=== PATIENT | female | born 1960 | race Caucasian/White ===

== ENCOUNTER → 2018-02-28 | Outpatient (CLI) | payer BC ==
--- NOTE | 2018-02-28 09:16 | MM ---
Reason for exam: clinical finding. Last mammogram was performed 2 years and 1 month ago. History: Patient is postmenopausal. 3 excisional biopsies of the left breast. Benign excisional biopsy of the right breast. Took hormonal contraceptives for 1 year. Indicated problem(s): lump or thickening in the left breast. Physical Findings: Nurse Summary: 1.5cm nodule in the left breast at 4 o'clock (nurse mj). MG 3D Diag Mammo W/Cad YURY Bilateral CC and MLO view(s) were taken. LM view(s) were taken of the right breast. Prior study comparison: January 29, 2016, bilateral MG diagnostic mammo w CAD [facility]. January 24, 2015, bilateral MG diagnostic mammo w CAD Y[facility]. The breast tissue is heterogeneously dense. This may lower the sensitivity of mammography. Benign appearing bilateral calcifications. No suspicious abnormality. Left upper outer quadrant posterior depth cysts decreaed in size from priors. These results were verbally communicated with the patient and result sheet given to the patient on 02/28/18. ASSESSMENT: Benign, BI-RAD 2 RECOMMENDATION: Routine screening mammogram of both breasts in 1 year.
--- NOTE | 2018-02-28 09:18 | USB ---
Reason for exam: additional evaluation requested from prior study. History: Patient is postmenopausal. 3 excisional biopsies of the left breast. Benign excisional biopsy of the right breast. Took hormonal contraceptives for 1 year. US Breast BILAT Technologist: Yana Wiggins, RT (R)(M) Right complete breast ultrasound includes all four quadrants, the retroareolar region and axilla. Finding demonstrates a 5mm oval, cystic lesion at 9 o'clock, a 6mm oval, cystic lesion at 9 o'clock and a 5mm cystic cluster at 11 o'clock. Left complete breast ultrasound includes all four quadrants, the retroareolar region and axilla. Finding demonstrates a 16 x 15 x 12mm oval, cystic lesion at 3 o'clock BB. All cystic and benign. These results were verbally communicated with the patient and result sheet given to the patient on 02/28/18. ASSESSMENT: Benign, BI-RAD 2 RECOMMENDATION: Routine screening mammogram of both breasts in 1 year.
== END | disposition home or self-care (01) ==
LOC: RADMAMWWP 07:46
PROVIDERS: ATTEND Obstetrics & Gynecology
DX: N60.09 Solitary cyst of unspecified breast (principal)
CPT/HCPCS: 77062; 77066

== ENCOUNTER → 2019-04-13 | Outpatient (CLI) | payer BC ==
--- NOTE | 2019-04-16 10:23 | MM ---
Reason for exam: screening (asymptomatic). Last mammogram was performed 1 year and 1 month ago. History: Patient is postmenopausal. 3 excisional biopsies of the left breast. Benign excisional biopsy of the right breast. Took hormonal contraceptives for 1 year. Physical Findings: A clinical breast exam by your physician is recommended on an annual basis and results should be correlated with mammographic findings. MG Screening Mammo w CAD Bilateral CC and MLO view(s) were taken. Prior study comparison: February 28, 2018, bilateral MG 3d diag mammo w/cad Y[facility]Y. January 29, 2016, bilateral MG diagnostic mammo w CAD YURY. The breast tissue is heterogeneously dense. This may lower the sensitivity of mammography. Finding: There are typically benign round, diffuse/scattered calcifications in the right breast. There is a chronic nodularity in the left axilla. There is no discrete abnormality. ASSESSMENT: Benign, BI-RAD 2 RECOMMENDATION: Routine screening mammogram of both breasts in 1 year.
== END | disposition home or self-care (01) ==
LOC: RADMAMWWP 16:53
PROVIDERS: ATTEND Obstetrics & Gynecology
DX: Z12.31 Encounter for screening mammogram for malignant neoplasm of breast (principal)
CPT/HCPCS: 77067

== ENCOUNTER → 2021-02-18 | Outpatient (CLI) | payer BC ==
--- NOTE | 2021-02-25 09:57 | MM ---
Reason for exam: screening (asymptomatic). Last mammogram was performed 1 year and 10 months ago. History: Patient is postmenopausal. 3 excisional biopsies of the left breast. Benign excisional biopsy of the right breast. Took hormonal contraceptives for 1 year. Physical Findings: A clinical breast exam by your physician is recommended on an annual basis and results should be correlated with mammographic findings. MG Screening Mammo w CAD Bilateral CC and MLO view(s) were taken. Prior study comparison: April 13, 2019, bilateral MG screening mammo w CAD. February 28, 2018, bilateral MG 3d diag mammo w/cad YURY. Finding #1: There is a stable typically benign high density, circumscribed, partially obscured round mass in the upper outer quadrant, middle position of the left breast. Finding #2: There are typically benign round, diffuse/scattered calcifications in the right breast. No significant changes in finding since April 13, 2019 and February 28, 2018. ASSESSMENT: Benign, BI-RAD 2 RECOMMENDATION: Routine screening mammogram of both breasts in 1 year.
== END | disposition home or self-care (01) ==
LOC: RADMAMWWP 16:17
PROVIDERS: ATTEND Obstetrics & Gynecology
DX: Z12.31 Encounter for screening mammogram for malignant neoplasm of breast (principal); Z78.0 Asymptomatic menopausal state
CPT/HCPCS: 77067

== ENCOUNTER → 2022-04-13 | Outpatient (CLI) | payer BC ==
--- NOTE | 2022-04-14 07:22 | MM ---
Reason for Exam: Screening (asymptomatic). Last mammogram was performed 1 year(s) and 2 month(s) ago. Patient History: Menarche at age 18. First Full-Term at age 26. Postmenopausal. Patient used Hormonal Contraceptives for 1 year. Benign Excisional Biopsy on the right side. Excisional Biopsy on the Left side. Excisional Biopsy on the Left side. Excisional Biopsy on the Left side. Risk Values: Angelita 5 year model risk: 1.7%. NCI Lifetime model risk: 9.1%. Prior Study Comparison: 02/28/2018 Bilateral Diagnostic Mammogram, [facility]. 04/13/2019 Bilateral Screening Mammogram, [facility]. 02/18/2021 Bilateral Screening Mammogram, [facility]. Tissue Density: The breast tissue is heterogeneously dense. This may lower the sensitivity of mammography. Findings: Analyzed By CAD. Chronic nodularity left breast. Regional diffuse rounded microcalcifications throughout the right breast as well as a focus of dystrophic calcification right upper outer quadrant. No significant change from prior exams. Overall Assessment: Benign, BI-RAD 2 Management: Screening Mammogram of both breasts in 1 year. 1. Patient should continue monthly self breast exams. 2. A clinical breast exam by your physician is recommended on an annual basis. 3. This exam should not preclude additional follow-up of suspicious palpable abnormalities. Electronically signed and approved by: Rudi Lott M.D. Radiologist
== END | disposition home or self-care (01) ==
LOC: RADMAMWWP 07:22
PROVIDERS: ATTEND Obstetrics & Gynecology
DX: Z12.31 Encounter for screening mammogram for malignant neoplasm of breast (principal); Z78.0 Asymptomatic menopausal state
CPT/HCPCS: 77067

== ENCOUNTER → 2023-05-07 | Outpatient (CLI) | payer BC ==
[2023-05-08 07:32] LABS: Chol/HDL Ratio 3.76 Ratio; LDL Cholesterol,Calculated 150.5 mg/dL (0.0-131.0); VLDL Calculation 16.88 mg/dL (5.00-40.00)
== END | disposition home or self-care (01) ==
LOC: LABWHC1 09:12
PROVIDERS: ATTEND Internal Medicine
DX: E78.00 Pure hypercholesterolemia, unspecified (principal)
CPT/HCPCS: 36415; 80061

== ENCOUNTER 2023-05-30 15:07 | Emergency (ER) | payer BC ==
--- NOTE | 2023-05-30 15:57 | ED ---
General Adult HPI - General Source: patient, RN notes reviewed <Cayla Andrade - Last Filed: 05/30/23 15:55> <Otilio Monet - Last Filed: 05/31/23 00:35> - General Stated complaint: right arm pain Time Seen by Provider: 05/30/23 15:50 - History of Present Illness Initial comments: 62 -year-old female presents emergency Department with chief complaint of pain in her right shoulder blade, right sided neck and forearm. She states this has been going on for around a week. She reports that she went to her primary care provider on Tuesday and was prescribed muscle relaxers which did not help. She notes no notable injury. She states that she played golf and started noticing pain 2 days later. (Cayla Andrade) This 62-year-old female presents with complain into her right upper thoracic region. Seems to radiate down her right arm and slightly into her right neck. This is been present for approximately one week. She states that it is fairly severe in nature. She is followed up with her primary care and they did prescribe her muscle relaxants, ibuprofen, steroids. She also tried Lidoderm patches. She states that she did not have any relief. It occurred shortly after playing golf. She denies previous similar incidents. There is been no fevers or chills. There is no anterior chest pain. No other complaints or modifying factors. (Otilio Monet) - Related Data Previous Rx's Medication Instructions Recorded HYDROcodone/APAP 7.5-325MG [[place] 1 - 2 tab PO Q6HR PRN 3 Days #15 05/30/23 7.5-325] tab Allergies Allergy/AdvReac Type Severity Reaction Status Date / Time No Known Allergies Allergy Verified 01/29/16 14:42 Review of Systems ROS Other: All systems not noted in ROS Statement are negative. <Cayla Andrade - Last Filed: 05/30/23 15:55> ROS Other: All systems not noted in ROS Statement are negative. <Otilio Monet - Last Filed: 05/31/23 00:35> ROS Statement: Those systems with pertinent positive or pertinent negative responses have been documented in the HPI. General Exam <Cayla Andrade - Last Filed: 05/30/23 15:55> <Otilio Monet - Last Filed: 05/31/23 00:35> - General Exam Comments Initial Comments: Visual Physical Exam Vital signs reviewed General: Well-appearing, nontoxic, no acute distress. Head: Normocephalic, atraumatic Eyes: PERRLA, EOMI ENT: Airway patent Chest: Nonlabored breathing Skin: No visual rash, normal skin tone Neuro: Alert and oriented 3 Musculoskeletal: No gross abnormalities (Cayla Andrade) GENERAL: The patient is well nourished and well hydrated. VITAL SIGNS: Heart rate, blood pressure, respiratory rate reviewed as recorded in nurse's notes. EYES: Pupils are round and reactive. Extraocular movements are intact. No conjunctival / lid redness or swelling. ENT: No external evidence of injury, swelling, or ecchymosis. Airway is patent. Throat is clear. NECK: Nontender. No swelling or evidence of injury. No subcutaneous emphysema. Trachea is midline. No thyroid mass. HEART: Regular rate and rhythm. Good peripheral pulses. LUNGS/CHEST: Breath sounds clear and equal bilaterally. No rales, rhonchi, or wheezes. No ecchymosis, subcutaneous emphysema, or tenderness. ABDOMEN: Abdomen soft without tenderness. No palpable masses or organomegaly. No peritoneal signs. No abdominal wall swelling or ecchymosis. EXTREMITIES: No extremity tenderness. Normal muscle tone and function. No thoracolumbar tenderness. Strength is intact to extremities. Muscle skeletal: There is some tenderness in the right parathoracic musculature superiorly. There is clear reproducibility and this is worse with certain movements. NEUROLOGIC: Sensation is grossly intact. Cranial nerve exam reveals face is symmetrical, tongue is midline, speech is clear. SKIN: No abrasions or ecchymosis is noted. No induration or masses noted. PSYCHIATRIC: Alert and oriented. Appropriate behavior and judgment. (Otilio Monet) Course Vital Signs 05/30/23 05/30/23 15:49 19:06 Temperature 98 F Pulse Rate 82 73 Respiratory 16 18 Rate Blood Pressure 139/75 142/73 O2 Sat by Pulse 98 98 Oximetry Medical Decision Making <Cayla Andrade - Last Filed: 05/30/23 15:55> <Otilio Monet - Last Filed: 05/31/23 00:35> - Medical Decision Making I preformed the quick note portion of this chart. Electronically signed by Cayla Andrade PA-C (Cayla Andrade) The patient was seen and examined. All diagnostics were reviewed. An x-ray was done of the chest and this does not show any acute abnormalities per my interpretation. The thoracic spine x-ray does show some degree of arthritis but otherwise no acute processes per my and interpretation and radiologist's interpretation. She receives Dilaudid 1 mg IM. She notes some mild relief. She receives additional Toradol IM. It is felt as though her symptoms are consistent with a right upper extremity radiculopathy. Her symptoms are likely related to a bulging herniated disc. It is felt as though she would benefit from close follow-up with orthopedics and potential MRI scan. She knows that she does have an appointment with orthopedic spine surgeon tomorrow. [place] is prescribed. Return parameters are discussed. Was pt. sent in by a medical professional or institution ([facility], SPIKE MACHINE OPERATOR, urgent care, hospital, or halfway...) When possible be specific @ -[No] Did you speak to anyone other than the patient for history (EMS, parent, family, police, friend...)? What history was obtained from this source @ - is present and gives additional history. Did you review nursing and triage notes (agree or disagree)? Why? @ -[I reviewed and agree with nursing and triage notes] Were old charts reviewed (outside hosp., previous admission, EMS record, old EKG, old radiological studies, urgent care reports/EKG's, halfway records)? Report findings @ -[No old charts were reviewed] Differential Diagnosis (chest pain, altered mental status, abdominal pain women, abdominal pain men, vaginal bleeding, weakness, fever, dyspnea, syncope, headache, dizziness, GI bleed, back pain, seizure, CVA, palpatations, mental health, musculoskeletal)? @ -Cervical or thoracic radiculopathy, herniated disc, bulging disks, thoracic arthritis. EKG interpreted by me (3pts min.). @ -None X-rays interpreted by me (1pt min.). @ -As above CT interpreted by me (1pt min.). @ -[None done] U/S interpreted by me (1pt. min.). @ -[None done] What testing was considered but not performed or refused? (CT, X-rays, U/S, labs)? Why? @ -[None] What meds were considered but not given or refused? Why? @ -[None] Did you discuss the management of the patient with other professionals (professionals i.e. , PA, SPIKE MACHINE OPERATOR, lab, RT, psych nurse, perinatal social worker, spread cutter, teacher, event security officer, assistant department manager)? Give summary @ -[No] Was smoking cessation discussed for >3mins.? @ -[No] Was critical care preformed (if so, how long)? @ -[No] Were there social determinants of health that impacted care today? How? (Homelessness, low income, unemployed, alcoholism, drug addiction, transportation, low edu. Level, literacy, decrease access to med. care, residential, rehab)? @ -[No] Was there de-escalation of care discussed even if they declined (Discuss DNR or withdrawal of care, Hospice)? DNR status @ -[No] What co-morbidities impacted this encounter? (DM, HTN, Smoking, COPD, CAD, Cancer, CVA, ARF, Chemo, Hep., AIDS, mental health diagnosis, sleep apnea, morbid obesity)? @ -[None] Was patient admitted / discharged? Hospital course, mention meds given and route, prescriptions, significant lab abnormalities, going to OR and other pertinent info. @ -Discharge Undiagnosed new problem with uncertain prognosis? @ -[No] Drug Therapy requiring intensive monitoring for toxicity (Heparin, Nitro, Insulin, Cardizem)? @ -[No] Were any procedures done? @ -[No] Diagnosis/symptom? @ -Right upper extremity radiculopathy, likely herniated cervical or thoracic disc Acute, or Chronic, or Acute on Chronic? @ -Acute Uncomplicated (without systemic symptoms) or Complicated (systemic symptoms)? @ -Uncomplicated Side effects of treatment? @ -[No] Exacerbation, Progression, or Severe Exacerbation? @ -[No] Poses a threat to life or bodily function? How? (Chest pain, [place], [place], pneumonia, PE, COPD, DKA, ARF, appy, cholecystitis, CVA, Diverticulitis, Homicidal, Suicidal, threat to staff... and all critical care pts) @ -[No] (Otilio Monet) Disposition <Cayla Andrade - Last Filed: 05/30/23 15:55> Is patient prescribed a controlled substance at d/c from ED?: Yes When asked, does pt state using other controlled substances?: No If prescribed controlled substance>3 days was MAPS reviewed?: Prescribed <3 Days Time of Disposition: 20:00 Decision Date: 05/30/23 Decision Time: 20:00 <Otilio Monet - Last Filed: 05/31/23 00:35> Clinical Impression: Thoracic myofascial strain, Radiculopathy affecting upper extremity, Thoracic disc disorder Disposition: HOME SELF-CARE Condition: Good Instructions (If sedation given, give patient instructions): Thoracic Disc Herniation (ED), Thoracic Back Strain (ED) Prescriptions: HYDROcodone/APAP 7.5-325MG [[place] 7.5-325] 1 - 2 tab PO Q6HR PRN 3 Days #15 tab PRN Reason: Pain Referrals: Margarita Virk MD [Primary Care Provider] - 1-2 days
[2023-05-30 15:59] VITALS: TEMP 98
--- NOTE | 2023-05-30 17:41 | XR ---
EXAMINATION TYPE: XR chest 2V DATE OF EXAM: 05/30/2023 5:19 PM CLINICAL INDICATION:Female, 62 years old with history of back pain shoulder pain radiating to right a rm; [facility] COMPARISON: None TECHNIQUE: XR chest 2V Frontal and lateral views of the chest. FINDINGS: Lungs/Pleura: There is no evidence of pleural effusion, focal consolidation, or pneumothorax. Pulmonary vascularity: Unremarkable. Heart/mediastinum: Cardiomediastinal silhouette is unremarkable. Musculoskeletal: No acute osseous pathology. IMPRESSION: No acute cardiopulmonary disease/process.
[2023-05-30] MEDS ORDERED: HYDROmorphone 1 MG/ML 1 ML SYRINGE IM STA (18:59)
[2023-05-30 19:10] VITALS: BP 142/73; PULSE 73; RESP 18
--- NOTE | 2023-05-30 19:43 | XR ---
EXAMINATION TYPE: XR thoracic spine 2V DATE OF EXAM: 05/30/2023 7:28 PM CLINICAL INDICATION:Female, 62 years old with history of fracture; [facility] COMPARISON: None TECHNIQUE: 2 views of the thoracic spine in Frontal and lateral projections. FINDINGS: No evidence of acute fracture. There is scattered multilevel disk space narrowing without loss of ve rtebral body height. There is normal alignment of the thoracic vertebral bodies. Scattered osteophyte formation along the anterior and lateral aspects of the vertebral bodies. Neural foramen are patent given limitations of this exam. Spinal canal appears patent. IMPRESSION: 1. No acute osseous pathology. 2. [id number] multilevel disc degeneration changes throughout the spine.
[2023-05-30] MEDS ORDERED: KETOROLAC 15 MG/ML 1 ML VIAL IM STA (19:46)
== END 2023-05-30 20:13 | disposition home or self-care (01) ==
LOC: EC 15:07
DX: S29.012A Strain of muscle and tendon of back wall of thorax, initial encounter (principal); M54.10 Radiculopathy, site unspecified; M51.84 Other intervertebral disc disorders, thoracic region; X58.XXXA Exposure to other specified factors, initial encounter
CPT/HCPCS: 93005; 72070; 71046; 99283; 96372 ×2; J1170; J1885

== ENCOUNTER → 2023-09-29 | Outpatient (CLI) | payer BC ==
--- NOTE | 2023-10-03 20:24 | MM ---
Reason for Exam: Screening (asymptomatic). Last mammogram was performed 1 year(s) and 5 month(s) ago. Patient History: Menarche at age 18. First Full-Term at age 26. Postmenopausal. Patient has history of breast feeding. Patient used Hormonal Contraceptives for 1 year. Benign Excisional Biopsy on the right side. Excisional Biopsy on the Left side. Excisional Biopsy on the Left side. Excisional Biopsy on the Left side. Risk Values: Angelita 5 year model risk: 1.8%. NCI Lifetime model risk: 8.9%. Prior Study Comparison: 04/13/2019 Bilateral Screening Mammogram, [facility]. 02/18/2021 Bilateral Screening Mammogram, [facility]. 04/13/2022 Bilateral MG screening mammo w CAD, [facility]. Tissue Density: The breast tissue is heterogeneously dense. This may lower the sensitivity of mammography. Findings: Analyzed By CAD. Benign punctate and secretory calcifications are present on the right. Unchanged bilateral areas of asymmetric density. Chronic nodularity on the left. Asymmetric densities located superiorly on the right MLO view have become more defined. This may represent superimposition shadow but further evaluation is recommended. Overall Assessment: Incomplete: need additional imaging evaluation, BI-RAD 0 Management: Special View Mammogram of the right breast. Diagnostic Breast Ultrasound of the right breast. Additional views to include spot 3-D MLO and 3-D lateral views. Targeted right breast ultrasound if any persisting abnormality. [facility] will attempt to contact patient to return for supplemental views and ultrasound if indicated. Electronically signed and approved by: Rudi Lott M.D. Radiologist
== END | disposition home or self-care (01) ==
LOC: RADMAMWWP 16:36
PROVIDERS: ATTEND Obstetrics & Gynecology Obstetrics
DX: Z12.31 Encounter for screening mammogram for malignant neoplasm of breast (principal); Z78.0 Asymptomatic menopausal state
CPT/HCPCS: 77067

== ENCOUNTER → 2023-10-14 | Outpatient (CLI) | payer BC ==
--- NOTE | 2023-10-14 09:31 | USB ---
Reason for Exam: Additional evaluation requested from abnormal screening. Patient History: Menarche at age 18. First Full-Term at age 26. Postmenopausal. Patient has history of breast feeding. Patient used Hormonal Contraceptives for 1 year. Benign Excisional Biopsy on the right side. Excisional Biopsy on the Left side. Excisional Biopsy on the Left side. Excisional Biopsy on the Left side. Risk Values: Angelita 5 year model risk: 1.8%. NCI Lifetime model risk: 8.7%. Technique: Method: Targeted. Prior Study Comparison: 02/18/2021 Bilateral Screening Mammogram, [facility]. 04/13/2022 Bilateral MG screening mammo w CAD, [facility]. 09/29/2023 Bilateral MG screening mammo w CAD, [facility]. Findings: The upper outer quadrant of the right breast, the axilla of the right breast and the retroareolar of the right breast were scanned. Simple cyst noted at the right 10:00 position 6 cm from the nipple measuring 6 4 x 4 mm. No solid masses seen.. Overall Assessment: Benign, BI-RAD 2 Management: Screening Mammogram of both breasts in 1 year. A clinical breast exam by your physician is recommended on an annual basis and results should be correlated with mammographic findings. This exam should not preclude additional follow-up of suspicious palpable abnormalities. Results were given to the patient verbally at the time of exam. Electronically signed and approved by: Kal Gibbs M.D. Radiologis
--- NOTE | 2023-10-14 14:41 | MM ---
Reason for Exam: Additional evaluation requested from abnormal screening. Last screening mammogram was performed less than 1 month ago. Patient History: Menarche at age 18. First Full-Term at age 26. Postmenopausal. Patient has history of breast feeding. Patient used Hormonal Contraceptives for 1 year. Benign Excisional Biopsy on the right side. Excisional Biopsy on the Left side. Excisional Biopsy on the Left side. Excisional Biopsy on the Left side. Risk Values: Angelita 5 year model risk: 1.8%. NCI Lifetime model risk: 8.7%. Prior Study Comparison: 02/18/2021 Bilateral Screening Mammogram, [facility]. 04/13/2022 Bilateral MG screening mammo w CAD, [facility]. 09/29/2023 Bilateral MG screening mammo w CAD, [facility]. Tissue Density: Right: The breast tissue is heterogeneously dense. This may lower the sensitivity of mammography. Findings: Analyzed By CAD. Asymmetric density upper right breast is improved following spot imaging. Overall Assessment: Incomplete: need additional imaging evaluation, BI-RAD 0 Management: Diagnostic Breast Ultrasound of the right breast. . Results were given to the patient verbally at the time of exam. Patient should continue monthly self-breast exams. A clinical breast exam by your physician is recommended on an annual basis. This exam should not preclude additional follow-up of suspicious palpable abnormalities. Note on Angelita scores and lifetime risk: 1. A Angelita score greater than 3% is considered moderate risk. If this is the case, consider specialist referral to assess eligibility for a risk reducing agent. 2. If overall lifetime risk for the development of breast cancer is 20% or higher, the patient may qualify for future screening with alternating mammogram and breast MRI. Electronically signed and approved by: Kal Gibbs M.D. Radiologis
== END | disposition home or self-care (01) ==
LOC: RADMAMWWP 08:31
PROVIDERS: ATTEND Obstetrics & Gynecology Obstetrics
DX: R92.331 Mammographic heterogeneous density, right breast (principal); Z78.0 Asymptomatic menopausal state
CPT/HCPCS: 77065

== ENCOUNTER → 2024-12-28 | Outpatient (CLI) | payer BC ==
--- NOTE | 2024-12-28 09:53 | MM ---
Reason for Exam: Screening (asymptomatic). Last mammogram was performed 1 year(s) and 3 month(s) ago. Patient History: Menarche at age 18. First Full-Term at age 26. Postmenopausal. Patient has history of breast feeding. Patient used Hormonal Contraceptives for 1 year. Benign Excisional Biopsy on the right side. Excisional Biopsy on the Left side. Excisional Biopsy on the Left side. Excisional Biopsy on the Left side. Risk Values: Angelita 5 year model risk: 1.9%. NCI Lifetime model risk: 8.4%. Prior Study Comparison: 04/13/2022 Bilateral MG screening mammo w CAD, [facility]. 09/29/2023 Bilateral MG screening mammo w CAD, [facility]. 10/14/2023 Right MG work up mamm w CAD RT, [facility]. Tissue Density: The breasts are extremely dense, which lowers the sensitivity of mammography. Findings: Analyzed By CAD. The area of asymmetric density upper outer margin right breast. Spot compression view recommended. Benign-appearing calcifications. Chronic nodularity upper left breast reduced in size compared to 04/13/2019 most likely related to a cyst. Overall Assessment: Incomplete: need additional imaging evaluation, BI-RAD 0 Management: Diagnostic Mammogram of the right breast. . Patient should continue monthly self-breast exams. A clinical breast exam by your physician is recommended on an annual basis. This exam should not preclude additional follow-up of suspicious palpable abnormalities. Note on Angelita scores and lifetime risk: 1. A Angelita score greater than 3% is considered moderate risk. If this is the case, consider specialist referral to assess eligibility for a risk reducing agent. 2. If overall lifetime risk for the development of breast cancer is 20% or higher, the patient may qualify for future screening with alternating mammogram and breast MRI. [facility], , 12/28/2024 9:50 AM. Electronically signed and approved by: Hemal Miranda M.D. Radiologis
== END | disposition home or self-care (01) ==
LOC: RADMAMWWP 09:21
PROVIDERS: ATTEND Obstetrics & Gynecology Obstetrics
DX: Z12.31 Encounter for screening mammogram for malignant neoplasm of breast (principal); R92.343 Mammographic extreme density, bilateral breasts; R92.1 Mammographic calcification found on diagnostic imaging of breast; Z78.0 Asymptomatic menopausal state; Z92.0 Personal history of contraception
CPT/HCPCS: 77063; 77067

== ENCOUNTER → 2025-01-04 | Outpatient (CLI) | payer BC ==
--- NOTE | 2025-01-04 08:12 | MM ---
Reason for Exam: Additional evaluation requested from abnormal screening. Last screening mammogram was performed less than 1 month ago. Patient History: Menarche at age 18. First Full-Term at age 26. Postmenopausal. Patient has history of breast feeding. Patient used Hormonal Contraceptives for 1 year. Benign Excisional Biopsy on the right side. Excisional Biopsy on the Left side. Excisional Biopsy on the Left side. Excisional Biopsy on the Left side. Risk Values: Angelita 5 year model risk: 1.9%. NCI Lifetime model risk: 8.4%. Prior Study Comparison: 02/28/2018 Bilateral Diagnostic Mammogram, [facility]. 04/13/2019 Bilateral Screening Mammogram, [facility]. 02/18/2021 Bilateral Screening Mammogram, [facility] 04/13/2022 Bilateral MG screening mammo w CAD, [facility]. 09/29/2023 Bilateral MG screening mammo w CAD, [facility]. 10/14/2023 Right MG work up mamm w CAD RT, [facility]. 12/28/2024 Bilateral MG 3D screening mammo w/cad, [facility]. Tissue Density: Right: The breasts are heterogeneously dense, which may obscure small masses. Findings: Analyzed By CAD. There is spiculation likely correlates to prior open biopsy. There is an adjacent area of nodularity measuring 1.6 cm 5 cm from the nipple. Ultrasound upper outer quadrant right breast is advised. Overall Assessment: Incomplete: need additional imaging evaluation, BI-RAD 0 Management: Diagnostic Breast Ultrasound of the right breast. . Results were given to the patient verbally at the time of exam. Patient should continue monthly self-breast exams. A clinical breast exam by your physician is recommended on an annual basis. This exam should not preclude additional follow-up of suspicious palpable abnormalities. Note on Angelita scores and lifetime risk: 1. A Angelita score greater than 3% is considered moderate risk. If this is the case, consider specialist referral to assess eligibility for a risk reducing agent. 2. If overall lifetime risk for the development of breast cancer is 20% or higher, the patient may qualify for future screening with alternating mammogram and breast MRI. [facility], , 01/04/2025 8:09 AM. Electronically signed and approved by: Kal Gibbs M.D. Radiologis
--- NOTE | 2025-01-04 08:42 | USB ---
Reason for Exam: Additional evaluation requested from abnormal screening. Patient History: Menarche at age 18. First Full-Term at age 26. Postmenopausal. Patient has history of breast feeding. Patient used Hormonal Contraceptives for 1 year. Benign Excisional Biopsy on the right side. Excisional Biopsy on the Left side. Excisional Biopsy on the Left side. Excisional Biopsy on the Left side. Risk Values: Angelita 5 year model risk: 1.9%. NCI Lifetime model risk: 8.4%. Technique: Method: Targeted. Doppler: Color. Patient Position: Supine. Prior Study Comparison: 09/29/2023 Bilateral MG screening mammo w CAD, [facility]. 10/14/2023 Right MG work up mamm w CAD RT, [facility]. 12/28/2024 Bilateral MG 3D screening mammo w/cad, [facility]. Findings: The upper outer quadrant of the right breast, the axilla of the right breast and the retroareolar of the right breast were scanned. There is a 2.9 x 2.2 cm spiculated hypoechoic mass at the right 9:00 position 7 cm from the nipple. No additional masses seen. Enlarged lymph node right axilla measuring 2.5 x 1.5 cm with cortical thickening of 6 mm. Biopsy of both lesions recommended.. Overall Assessment: Suspicious, BI-RAD 4 Management: Ultrasound Core Biopsy of the right breast. A clinical breast exam by your physician is recommended on an annual basis and results should be correlated with mammographic findings. This exam should not preclude additional follow-up of suspicious palpable abnormalities. Results were given to the patient verbally at the time of exam. [facility], , 01/04/2025 8:39 AM. Electronically signed and approved by: Kal Gibbs M.D. Radiologis
== END | disposition home or self-care (01) ==
LOC: RADMAMWWP 07:38
PROVIDERS: ATTEND Obstetrics & Gynecology Obstetrics
DX: R92.8 Other abnormal and inconclusive findings on diagnostic imaging of breast (principal); R92.331 Mammographic heterogeneous density, right breast; Z78.0 Asymptomatic menopausal state; Z92.0 Personal history of contraception
CPT/HCPCS: 77061; 77065

== ENCOUNTER → 2025-02-18 | Outpatient (CLI) | payer BC ==
--- NOTE | 2025-02-18 14:44 | CT ---
EXAMINATION TYPE: CT ChestAbdPelvis w con DATE OF EXAM: 02/18/2025 2:07 PM COMPARISON: None. CLINICAL INDICATION: Female, 64 years old with history of C50.919 BREAST CANCER; [facility], Newly diagosed breast ca observe for mets Technique: CT ChestAbdPelvis w con; Multiple axial images were obtained. Two-dimensional coronal and sagittal reconstructions were obtained. Contrast used:100 mL of Isovue 300 with IV Contrast, (None if empty) Oral contrast used: with Oral Contrast CT DLP: 1628 mGycm, Automated exposure control for dose reduction was used. Findings: CHEST: LUNGS/ PLEURA: No focal consolidation, pneumothorax or pleural effusion. AIRWAY: Patent and unremarkable. HEART: Size within normal limits. No significant coronary artery calcifications. MEDIASTINUM: No gross evidence of adenopathy. VASCULATURE: No aortic aneurysm. MUSCULOSKELETAL: No acute osseous abnormalities. SOFT TISSUES/LYMPH NODES: Right axillary lymph node with suspected biopsy clip. Fragments changes lef t anterior shoulder subcutaneous tissues. Masslike fibroglandular tissue sagittal imaging series 6 im age 39 measuring up to 2.0 x 1.5 cm. LOWER NECK: No significant findings. ABDOMEN: ABDOMEN LIVER: Unremarkable GALLBLADDER AND BILE DUCTS: Unremarkable. PANCREAS: Unremarkable. SPLEEN: Unremarkable. ADRENAL GLANDS: Unremarkable. KIDNEYS AND URETERS: No evidence of hydronephrosis or obstructing renal calculus. The ureters are unr emarkable. A simple appearing renal cysts measuring up to 16 mm no follow-up recommended. PELVIS BLADDER: Unremarkable REPRODUCTIVE: Unremarkable. ABDOMEN & PELVIS STOMACH AND BOWEL: No evidence of bowel obstruction. PERITONEUM/RETROPERITONEUM: No evidence of pneumoperitoneum or free fluid. VASCULATURE: No evidence of aortic aneurysm. MUSCULOSKELETAL: No acute osseous abnormalities. Right sacrum bone island measuring up to 11 mm RIS 2 and on the left S2 and on the measuring 3 mm. ePerineural cysts in the sacrum at the level L2 measur ing up to 32 mm LYMPH NODES: No gross evidence for lymphadenopathy. SOFT TISSUE/ABDOMINAL WALL: Unremarkable IMPRESSION: 1. Right breast mass with right axillary lymph node with biopsy clip present. No evidence for lympha denopathy or suspicious bone lesion to suggest metastatic disease at this time. Attention on follow-u p imaging. 2. Left anterior shoulder subcutaneous phlegmonous change unclear clinical significance. 3. Bone island in the sacrum at S2 4. [facility], , 02/18/2025 2:41 PM
--- NOTE | 2025-02-18 16:21 | NM ---
INDICATION: Patient age:Female; 64 years old; Reason for study: C50.919 BREAST CANCER; [facility]. COMPARISON: CT chest abdomen pelvis 02/18/2025. TECHNIQUE: Intravenous administration of 24.0 mCi of Technetium 99m-Medronate followed by multiple sc intigraphic images of the appendicular and axial skeleton. FINDINGS: No abnormal uptake is identified within the appendicular or axial skeleton to suggest metastatic dise ase. There is increased uptake within the bilateral knees consistent with degenerative changes. No other p hotopenic areas or areas of increased activity are identified. Physiologic radiotracer activity is demonstrated in the kidneys and bladder. IMPRESSION: Nothing to suggest osseous metastatic disease. [facility], , 02/18/2025 4:18 PM
== END | disposition home or self-care (01) ==
LOC: RADNMMAIN 10:49
PROVIDERS: ATTEND Internal Medicine Hematology & Oncology
DX: Z03.89 Encounter for observation for other suspected diseases and conditions ruled out (principal); C50.919 Malignant neoplasm of unspecified site of unspecified female breast; N63.10 Unspecified lump in the right breast, unspecified quadrant; Z85.3 Personal history of malignant neoplasm of breast
CPT/HCPCS: 71260; 74177; 78306; A9503; Q9967